=== PATIENT | female | born 1990 | race Caucasian/White ===

== ENCOUNTER 2017-02-01 21:45 | Emergency (ER) | payer OTHER ==
[~2017-02-01] VITALS: Ht 172.7 cm; Wt 121.0 kg
[~2017-02-01 21:45] MED LIST: CAMRTAB PO; CEPH500C3 PO; IBUP-232 PO; VITA20002 PO
[2017-02-01 21:47] VITALS: BP 144/87; PULSE 98; RESP 14; TEMP 98.5; O2SAT 100
[2017-02-01] MEDS ORDERED: birth control (22:01)
--- NOTE | 2017-02-01 22:56 | PD ---
HPI Chief Complaint: ENT Complaint Time Seen by Provider: 22:53 Travel History International Travel<30 days: No Contact w/Intl Traveler<30days: No Traveled to known affect area: No History of Present Illness HPI Patient comes in complaining of sore throat going on for a week or so but getting worse over the past couple days. Pain is worse with swallowing and radiating. Patient tried using [id number] medication with minimal to no relief of her symptoms. Patient denies any known fever, nausea, vomiting, chest pain, shortness of breath, diarrhea, or . Patient states that she has occasionally have cough at night that is nonproductive. Patient's coworker was diagnosed with strep. Patient states she does have high blood pressure but does not take her medication as she does not like the way makes her feel. Patient states her primary care doctor is aware of this. PFSH Past Medical History Anemia: Yes Cardiovascular Problems: Yes (HTN-NOT TAKING MEDS) GERD: Yes ?: Not : 1 Miscarriage: 1 Social History Alcohol Use: No Tobacco Use: No Substance Use: No Allergies-Medications (Allergen,Severity, Reaction): Coded Allergies: No Known Allergies (Verified , 02/01/17) Reported Meds & Prescriptions Reported Meds & Active Scripts Active Augmentin (Amoxicillin-Clavulanate) 875-125 mg Tab 875 Mg PO BID 10 Days not for use in CrCl <30 ml/min. Reported [ control] Review of Systems Except as stated in HPI: all other systems reviewed are Neg Physical Exam Narrative GENERAL: Well-developed, overly nourished, in no acute distress, and non-ill appearing. SKIN: Warm and dry. HEAD: Atraumatic. Normocephalic. EYES: Pupils equal and round. EOMI. No scleral icterus. No injection or drainage. ENT: No nasal bleeding or discharge. Mucous membranes pink and moist. Tympanic membranes pearly story bilaterally. Posterior pharynx erythematous. Tonsils are edematous erythematous, and with exudate. Uvula is midline. No tenderness to facial sinuses to palpation. Patient is able to swallow her own saliva and speaking in full sentences. NECK: Trachea midline. No cervical lymphadenopathy. Supple. No nuclear rigidity. CARDIOVASCULAR: Regular rate and rhythm. No murmur appreciated. RESPIRATORY: No accessory muscle use. No respiratory distress. Clear to auscultation. Breath sounds equal bilaterally. MUSCULOSKELETAL: No obvious deformities. No clubbing. No cyanosis. No edema. Full range of motion. NEUROLOGICAL: Awake and alert. No obvious cranial nerve deficits. Motor grossly within normal limits. Normal speech. PSYCHIATRIC: Appropriate mood and affect; insight and judgment normal. Data Data Last Documented VS Vital Signs Date Time Temp Pulse Resp B/P Pulse Ox O2 Delivery O2 Flow Rate FiO2 02/01/17 21:47 98.5 98 14 144/87 100 Room Air Orders Group A Rapid Strep Screen (02/01/17 21:55) Strep Culture (Group A) (02/01/17 22:05) Amoxicil-Clavulanate (Augmentin) (02/01/17 23:00) MDM Medical Decision Making Medical Screen Exam Complete: Yes Emergency Medical Condition: Yes Differential Diagnosis Strep pharyngitis, viral pharyngitis, tonsillitis, retropharyngeal abscess, peritonsillar abscess, other Narrative Course Patient looks great, non-ill appearing. The patient is tolerating fluids and is well hydrated. Appears tonsillitis. No clinical evidence by history or evaluation to suspect meningitis and/or sepsis. There was no evidence to suggest peritonsillar abscess or retropharyngeal abscess. I discussed with the patient, diagnosis, plan of care and to follow up with the patients primary physician. The patient was given antibiotics. The patient was instructed to return if the worsens in anyway, especially if not tolerating fluids, increased pain or swelling, difficulty swallowing or breathing, or as needed. The patient agreed with plan. Patient in no obvious distress upon re-evaluation. All pertinent laboratory result(s) discussed with patient. Patient was asked if they wanted to speak to my attending, which the patient did not wish to do at this time. Any questions/ concerns in reference to patient diagnosis/condition discussed and clarified prior to patient's discharge. Reinforced sheer importance of close follow up with patient's primary physician or primary care clinic. Instructed patient to return to ED immediately, if symptoms return/worsen. Pt showed understanding of above instructions. Further instructions and recommendations were detailed in discharge paperwork. Pt ambulated without difficulty out of ED at discharge. Diagnosis Primary Impression: Acute tonsillitis Qualified Code: J03.90 - Acute tonsillitis, unspecified etiology Patient Instructions: General Instructions, Tonsillitis (ED) Additional Instructions: Follow-up with your primary care physician next week for reevaluation. Take all medication as prescribed. Use [id number] Tylenol and/or ibuprofen as needed for pain. Return to the emergency department if symptoms get worse. Med/Other Pt SpecificInfo: Prescription(s) given Scripts Amoxicillin-Clavulanate (Augmentin)875-125 mg [id number] Mg PO BID 10 Days Ref 0 not for use in CrCl <30 ml/min. Prov:Monika Dumas DO 02/01/17 Disposition: 01 DISCHARGE HOME Condition: Stable Estevan Paiz Feb 01, 2017 22:56
[2017-02-01] MEDS ORDERED: AUGM875T PO (22:57)
[2017-02-01] MEDS ORDERED: AMOXICILLIN/CLAVULANATE K 875 MG TAB PO ONE (23:00)
== END 2017-02-01 23:37 | disposition home or self-care (01) ==
LOC: NEPB 21:45
DX: J03.90 Acute tonsillitis, unspecified (principal); I10 Essential (primary) hypertension
CPT/HCPCS: 87081; 87880; 99283